=== PATIENT | male | born 1970 | race Native Hawaiian/Other Pacific Islander ===

== ENCOUNTER 2018-11-21 09:34 | Emergency (ER) | payer BC ==
[2018-11-21 09:59] VITALS: BP 138/84
--- NOTE | 2018-11-21 10:33 | XRay Report ---
ROUTINE CHEST, TWO VIEWS: HISTORY: Cough. The trachea, heart, mediastinal contour, lung baird and bony thorax are unremarkable. Scattered calcified lung granulomas are noted. IMPRESSION: Unremarkable chest x-ray.
--- NOTE | 2018-11-21 11:18 | Emergency Department Report ---
ED General Adult HPI - General Chief complaint: Chest Pain Stated complaint: SWEATING Time Seen by Provider: 11/21/18 10:55 Source: patient Mode of arrival: Ambulatory Limitations: No Limitations - History of Present Illness Initial comments: 48-year-old male sent to ED by his ENT physician. Patient states he was seen by ENT doctor 2 days ago for ear infection. States he was given a prescription for antibiotic drops which he used for the first time on yesterday. Patient states immediately after using the eardrops, he experienced dizziness. States approximately 20 minutes later he began sweating. Patient denies fever. States he has been sweating intermittently since yesterday. Patient reportedly has a history of having positive TB skin test 30 years ago. Patient denies ever being treated for TB. He also denies night sweats, fever, hemoptysis. Patient reports very mild cough. Triage note states patient reported having chest pressure, but patien denies chest pain/ pressure. Also denies headache, nausea and vomiting, abdominal pain, urinary symptoms. Patient does report diarrhea. -: days(s) (1) Severity scale (0 -10): 2 Consistency: intermittent Improves with: none Worsens with: none Associated Symptoms: cough, diaphoresis. denies: chest pain, fever/chills, headaches, nausea/vomiting, shortness of breath - Related Data Allergies Allergy/AdvReac Type Severity Reaction Status Date / Time ibuprofen AdvReac Nausea Verified 11/21/18 09:59 Sulfa (Sulfonamide AdvReac Nausea Verified 11/21/18 09:59 Antibiotics) ED Review of Systems ROS: Stated complaint: SWEATING Other details as noted in HPI Comment: All other systems reviewed and negative Constitutional: denies: chills, fever Respiratory: cough. denies: shortness of breath Cardiovascular: denies: chest pain Gastrointestinal: diarrhea. denies: abdominal pain, nausea, vomiting Genitourinary: denies: dysuria, frequency, hematuria Neurological: denies: headache ED Past Medical Hx - Social History Smoking Status: Never Smoker Substance Use Type: None ED Physical Exam - General Limitations: No Limitations General appearance: alert, in no apparent distress - Head Head exam: Present: atraumatic, normocephalic - Eye Eye exam: Present: normal appearance - ENT ENT exam: Present: mucous membranes moist - Neck Neck exam: Present: normal inspection - Respiratory Respiratory exam: Present: normal lung sounds bilaterally. Absent: respiratory distress - Cardiovascular Cardiovascular Exam: Present: regular rate, normal rhythm - GI/Abdominal GI/Abdominal exam: Present: soft. Absent: distended, tenderness - Extremities Exam Extremities exam: Present: normal inspection - Neurological Exam Neurological exam: Present: alert, oriented X3, CN II-XII intact. Absent: motor sensory deficit - Psychiatric Psychiatric exam: Present: normal affect, normal mood - Skin Skin exam: Present: warm, dry, intact, normal color. Absent: rash, diaphoretic ED Course Vital Signs 11/21/18 09:55 Temperature 98.1 F Pulse Rate 82 Respiratory 16 Rate Blood Pressure 138/84 O2 Sat by Pulse 97 Oximetry ED Medical Decision Making - Lab Data Result diagrams: 11/21/18 11:21 11/21/18 11:21 - EKG Data -: EKG Interpreted by Tx EKG shows normal: sinus rhythm, axis, intervals, QRS complexes, ST-T waves Rate: normal - EKG Data Interpretation: no acute changes - Radiology Data Radiology results: report reviewed, image reviewed - Medical Decision Making 48-year-old male presents to ED with 2 day history of intermittent sweating af ter using unknown eardrops. Patient is not currently diaphoretic here in ED. He is also afebrile. Workup is unremarkable, including labs, EKG, chest x-ray. Will discharge at this time. Patient given return precautions. Outpatient follow-up advised. - Differential Diagnosis infection, ACS, medication side effect Critical care attestation.: If time is entered above; I have spent that time in minutes in the direct care of this critically ill patient, excluding procedure time. ED Disposition Clinical Impression: Viral illness Disposition: DC-01 TO HOME OR SELFCARE Is pt being admited?: No Condition: Stable Instructions: Acute Diarrhea (ED), Viral Syndrome (ED) Referrals: [facility] [Provider Group] - 3-5 Days PRIMARY CARE, [Referring] - 3-5 Days Time of Disposition: 13:37
[2018-11-21 11:43] LABS: Basophils # (Auto) 0.1 K/mm3 (0.0-0.1); Basophils % (Auto) 1.2 % (0.0-1.8); Eosinophils % (Auto) 0.3 % (0.0-4.3); Hemoglobin 16.8 gm/dl (11.8-15.2); Lymphocytes # (Auto) 2.2 K/mm3 (1.2-5.4); Lymphocytes % (Auto) 29.6 % (13.4-35.0); Mean Corpuscular HGB Conc 34 % (32-34); Mean Corpuscular Volume 93 fl (84-94); Monocytes # (Auto) 0.5 K/mm3 (0.0-0.8); Monocytes % (Auto) 6.8 % (0.0-7.3); Platelet Count 276 K/mm3 (140-440); Red Blood Count 5.38 M/mm3 (3.65-5.03); Red Cell Distribution Width 13.4 % (13.2-15.2)
[2018-11-21 12:07] LABS: Alanine Aminotransferase 95 units/L (7-56); Albumin 4.5 g/dL (3.9-5); BUN/Creatinine Ratio 14; Blood Urea Nitrogen 11 mg/dL (9-20); Calcium 9.5 mg/dL (8.4-10.2); Hemolysis Index 9
[2018-11-21 12:37] LABS: Bacteria,Urine 1+ /HPF (Negative); Bilirubin,Urine NEG (Negative); Blood,Urine NEG (Negative); Color,Urine Yellow (Yellow); Protein,Urine <15 mg/dL mg/dL (Negative); Urobilinogen,Urine < 2.0 mg/dL (<2.0)
== END 2018-11-21 13:46 | disposition home or self-care (01) ==
LOC: ED 09:34
DX: B33.8 Other specified viral diseases (principal); Z88.6 Allergy status to analgesic agent; Z88.1 Allergy status to other antibiotic agents
CPT/HCPCS: 36415; 71046; 80053; 81001; 84484; 85025; 93005; 93010; 99283